=== PATIENT | male | born 1965 | race Caucasian/White ===

== ENCOUNTER 2024-07-17 07:08 | Outpatient (REF) | payer OTHER, SELFPAY ==
--- NOTE | ~2024-07-17 | MR_ITS ---
EXAMINATION: MR SHOULDER, LEFT CLINICAL INFORMATION: Chronic left shoulder pain and decreased range of motion x3 months. Little improvement with physical therapy. COMPARISON: None TECHNIQUE: Multiplanar multisequence MR imaging of the left shoulder was done without IV contrast. Examination performed on a 1.5 Nini Siemens unit utilizing standard sequences. FINDINGS: Rotator Cuff and Biceps Tendon: Supraspinatus: There is a partial approximately 20% undersurface tear of the anterior aspect of the tendon arising from the medial footplate attachment extending into the critical zone. (Series 9, images 11-12). In addition, there is a delamination type undersurface tear beginning in the critical zone extending into the myotendinous region (series 9, image 13). There is no full-thickness tear or tendinous retraction. There is no atrophy of the muscle belly. Infraspinatus: There is no discrete tear identified. No tendinous retraction. Mildly increased signal throughout the distal tendon is consistent with mild tendinopathy. Normal muscle belly. Subscapularis: No discrete tear identified. Mild bursal surface fraying. The remainder of the tendon is intact. Normal muscle belly. Teres Minor: Intact and normal in signal. Normal muscle belly. Biceps Long Head: Normally located within the bicipital groove. Normal tendinous morphology. Mildly increased fluid in the tendon sheath. The tendon within the rotator interval is normal. The anchor is intact. AC Joint and Acromiohumeral Arch: There is a type I acromion. No undersurface spurring. Moderate hypertrophic arthropathy of the AC joint with mild periarticular edema, joint capsular distention, and predominantly superior surface spurring. There is minimal undersurface spurring present without significant narrowing of the supraspinatus outlet. Glenohumeral Joint and Labrum: There is signal alteration and irregularity of the superior labrum suspicious for superior labral tear. Remainder of the labrum appears intact. Mild cartilaginous thinning in the urination without full-thickness defect. No significant glenohumeral joint spurring. No subchondral bone plate edema. Osseous Structures: No gross evidence of fracture or contusion. No infiltrating abnormal signal. Spino-glenoid Notch: Normal. Quadrilateral Space: Normal. Other: There is a small amount of fluid in the subacromial/subdeltoid bursa, consistent with bursitis. There is fluid within the subcoracoid bursa, nonspecific. The glenohumeral ligaments are intact. The inferior glenohumeral ligament is mildly thickened up to 5 mm (series 11, image 13), raising the possibility of adhesive capsulitis. MR/MR shoulder LT wo con IMPRESSION: 1. Partial approximately 20% undersurface tear of the anterior aspect of the supraspinatus tendon involving the anterior medial footplate attachment extending into the critical zone. In addition there is a thin delamination type tear communicating with the undersurface of the mid tendon, extending to the myotendinous region. No full-thickness tear or tendinous retraction. 2. Infraspinatus is intact. No discrete tear. There is mild tendinopathy. 3. Mild bursal surface fraying of the subscapularis tendon. No definite tear. 4. Subacromial/subdeltoid bursitis, mild to moderate. 5. Fluid in the subcoracoid bursa, nonspecific but could relate to bursitis. 6. 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 7. Mild glenohumeral joint degenerative arthropathy. Suspect tearing of the superior labrum. Remainder of the labrum appears intact. 8. Thickening of the IGL, raising possibility for adhesive capsulitis. Would correlate clinically for signs and symptoms. Electronically signed by: Phi Sierra MD 07/18/2024 09:31 AM EDT
== END 2024-07-17 07:09 | disposition home or self-care (01) ==
LOC: HO.MRI 07:08
PROVIDERS: PCP Internal Medicine; Visit Provider Internal Medicine
DX: M25.512 Pain in left shoulder (principal)
CPT/HCPCS: 73221

== ENCOUNTER → 2024-07-17 07:22 | Outpatient (BNV) | payer OTHER, SELFPAY | PROVIDERS: PCP Internal Medicine; Visit Provider Radiology Diagnostic Radiology | DX: M25.512 Pain in left shoulder (principal) | CPT/HCPCS: 73221 ==